=== PATIENT | male | born 1970 | race Caucasian/White ===

== ENCOUNTER 2024-11-18 20:56 | Emergency (ER) | payer OTHER, SELFPAY ==
--- OUTSIDE RECORDS SUMMARY | 2024-11-18 20:57 | XMS_ITS | Clinical Summary ---
Author Organization [facility] Address [address] [place] [id number] Care Team Providers Care Press Brake Operator Name Role Phone Bryn Galloway MD Primary Care Provider Allergies Active Allergy Reactions Criticality Noted Date Comments Grass Pollen Itching,Runny Nose 09/25/2018 Budesonide-Formoterol Cough 09/25/2018 Medications fluticasone, 50 mcg per actuation, nasal (FLONASE) 50 mcg/actuation nasal spray Inhale 1 Nicholls into both nostrils once daily. 1 Bottle 0 2 Active cetirizine (ZYRTEC) 10 mg tablet Take 1 tablet by mouth once daily. 0 6 Active melatonin 5 mg capsule Take 1 capsule by mouth at bedtime. 0 9 Active sucralfate (CARAFATE) 1 gram tabletIndications :Chronic GERD Take 1 Tablet (1 g) by mouth three times daily before meals. Use as needed before times you generally have worsened reflux 30 Tablet 3 2 Active albuterol HFA (PRO-AIR; VENTOLIN; PROVENTIL) 90 mcg/actuation inhalerIndication s:Moderate persistent asthma without complication (HC) Inhale 1 Puff by mouth every 4 hours while awake. 8.5 g 1 4 Active omeprazole (PRILOSEC) 40 mg Delayed-Release capsuleIndication s:Gastroesophagea l reflux disease, unspecified whether esophagitis present Take 1 Capsule (40 mg) by mouth once daily before a meal. 90 Capsule 3 4 Active SUMAtriptan (IMITREX) 100 mg tabletIndications :Migraine syndrome Take 1 Tablet (100 mg) by mouth every 2 hours if needed for Migraine. Max dose: 200mg per 24 hrs. 9 Tablet 11 4 Active DULoxetine (CYMBALTA) 20 mg Delayed-release capsuleIndication s:KIMBERLY (generalized anxiety disorder),Depress ion, major, in remission Take 1 Capsule (20 mg) by mouth once daily. Stop escitalopram. 90 Capsule 3 4 Active mirtazapine (REMERON) 7.5 mg tabletIndications :Sleep disturbance Take 1 Tablet (7.5 mg) by mouth at bedtime. As needed for sleep. 90 Tablet 3 4 Active Advair HFA 115-21 mcg/actuation inhalerIndication s:Moderate persistent asthma, unspecified whether complicated (HC) INHALE 2 PUFFS BY MOUTH EVERY 12 HOURS 12 g 3 4 Active sildenafil citrate 100 mg tabletIndications :Erectile dysfunction of organic origin TAKE ONE-HALF TO ONE TABLET BY MOUTH ONCE DAILY IF NEEDED FOR ED. TAKE 30 MINUTES TO 4 HOURS BEFORE SEXUAL ACTIVITY. 30 Tablet 2 5 Active Active Problems Problem Noted Date Diagnosed Date Depression, major, in remission 02/27/2024 KIMBERLY (generalized anxiety disorder) 02/27/2024 IFG (impaired fasting glucose) 04/14/2022 Overview (04/14/2022): A1c 5.9% (03/2022) Family history of heart disease - Father CABG ag e 60 10/03/2018 Inguinal hernia, left 10/03/2018 Overview (04/11/2022): 2018 CT without hernia 2021 - mild left inguinal hernia on exam, non-tender. Monitor. Allergic rhinitis due to pollen 09/25/2018 Mild intermittent asthma without complication Overview (11/13/2018): URI Triggers and Pollen triggers. Tried Symbicort, but caused coughing 11/2018 -PFTs with normal exhaled nitric oxide, normal DLCO and normal capacity. Migraine variant 02/02/2005 Overview (09/25/2018): Cluster Headaches. Uses imitrex with good effect (about once per year) Resolved Problems Problem Noted Date Diagnosed Date Resolved Date Healthcare maintenance 08/14/202102/26 Overview (08/14/2021): Colonoscopy normal 06/2021 - follow up 10 years Moderate persistent asthma w ithout complication 10/03/2018 04/11/2022 Migraine syndrome 09/25/2018 09/25/2018 Encounters Date Type Department Care Team Description 10/05/2024 Refill [facility] [place] [address] [place] [address] Bryn Galloway MD Refill Request (Sildenafil Citrate) from Last 3 Months Immunizations Immunization Administration Dates Next Due COVID-19 vaccine (Moderna 100mcg/0.5mL) AGAPITO WESTON 07/28/2021 DT (Age < 7 years) 07/09/1990 Influenza A (H1N1), Inactivated 07/10/2009 Td (Age >=7 Years) 02/08/2005 Tdap 01/13/2015 Zoster (Shingrix-RZV, recombinant) 06/01/2023,03/22/2021 Family History Medical History Relation Name Comments Good Health Brother 1 Hyperlipidemia Brother 2 Hyperlipidemia Brother 3 Heart Disease Father CABG Other Maternal Aunt crohns Other Maternal Grandfather hemochr omatosis Good Health Mother Heart issues Depression Paternal Grandmother Severe Depression Good Health Sister Allergic rhinitis Son 2 Relation Name Status Comments Brother 1 Alive Brother 2 Alive Brother 3 Alive Father Alive Maternal Aunt Maternal Grandfather Mother Alive Paternal Grandmother Sister Alive Son 1 Alive Son 2 Alive Son 3 Alive Social History Tobacco Use Types Packs/Day Years Used Date Smoking Tobacco: Former Cigarettes Q uit: 05/23/1997 Passive Smoke Exposure: Past Smokeless Tobacco: Never Tobacco Cessation:Counseling Given: Not Answered Alcohol Use Standard Drinks/Week Comments Not Currently 4 (1 standard drink = 0.6 oz pur e alcohol) occ PHQ-2 Answer Date Recorded PHQ-2 TOTAL SCORE 2 03/28/2024 Social Connections Answer Date Recorded Do you often feel lonely or isolated from those around you? 0 02/27/2024 Financial Resource Strain Answer Date R ecorded Difficulty of Paying Living Expenses 3 02/27/2024 Difficulty of Paying Living Expenses Not on file 02/27/2024 Food Insecurity Answer Date Recorded Do you worry your food will run out before you are able to buy more? 1 02/27/2024 Transportation Needs Answer Date Record ed Does lack of transportation keep you from medica l appointments? 1 02/27/2024 Does lack of transportation keep you from work, meetings or getting things that you need? 1 02/27/2024 Housing Stability Answer Date Recorded What is your housing situation today? 1 02/27/2024 Utilities Answer Date Recorded Do you have trouble paying f or utilities (for example, heat, electricity, water, phone)? 1 02/27/2024 Sex and Gender Information Value Date Recorded Sex Assigned at Not on file Legal Sex Male 8:40 AM WEB OPERATIONS SPECIALIST Gender Identity Not on file Sexual Orientation Not on file Obstetrics History Last Filed Vital Signs Vital Sign Reading Time Taken Comments Blood Pressure 116/67 05/28/2024 2:41 PM WEB OPERATIONS SPECIALIST Pulse 77 05/28/2024 2:41 PM WEB OPERATIONS SPECIALIST Temperature 36.6 C (97.9 F) 05/17/2022 9:35 AM WEB OPERATIONS SPECIALIST Respiratory Rate 16 02/27/2024 11:2 6 AM CDT Oxygen Saturation 96% 05/28/2024 2:41 PM WEB OPERATIONS SPECIALIST Inhaled Oxygen Concentration - - Weight 77.9 kg (171 lb 12.8 oz) 05/28/2024 2:41 PM WEB OPERATIONS SPECIALIST Height 174.5 cm (5' 8.7) 05/28/2024 2:41 PM WEB OPERATIONS SPECIALIST Body Mass Index 25.59 05/28/2024 2:41 PM WEB OPERATIONS SPECIALIST Plan of Treatment Health Maintenance Due Date Last Done Comments Pneumococcal series for age 50+ (1 of 2 - PCV) 1988 COVID-19 vaccine series ( season) 2024 07/28/2021, 11/25/2020, 10/28/2020 Tetanus booster 01/13/2025 01/13/2015, 02/08/2005 Influenza Vaccine (Season Ended) 2025 Depression screening for age 12+ 03/28/2025 03/28/2024, 03/06/2024, 02/27/2024, Additional history exists BMI (ht and wt on same day) for age 18+ 05/28/2025 05/28/2024, 03/28/2024, 02/27/2024, Additional history exists HIV for age 15-65 03/04/2029 Postponed from 1984 (Patient discretion) Lipids for age 45-75 03/28/2029 03/28/2024, 04/11/2022, 01/26/2021, Additional history exists Colonoscopy through age 75 07/06/2031 07/06/2021 Tdap Completed 01/13/2015 Hepatitis C screening for age 18-79 Completed 04/11/2022 Zoster (shingles) series for age 50+ Completed 06/01/2023, 01/19/2021 Procedures Procedure Name Priority Date/Time Associated Diagnosis Comments LIPID PANEL Routine 03/28/2024 9:05 AM CDT Screening, lipid ANTI HCV Routine 04/11/2022 10:35 AM CDT Need for hepatitis C screening test SCAN-COLONOSCOPY 07/06/2021 11:3 0 AM WEB OPERATIONS SPECIALIST from Last 3 Months or Most Recently Relevant to Health Maintenance Results * Lipid panel, fasting (03/28/2024 9:05 AM CDT) CHOLESTEROL,TOTAL 190 100 - 199 mg/dL 03/28/2024 12:15 PM CDT [facility] Comment: Cholesterol, Total Reference Ranges Desirable <200 mg/dL Borderline 200-239 mg/dL High >=240 mg/dL TRIGLYCERIDES 43 <150 mg/dL 03/28/2024 12:15 PM CDT [facility] HDL CHOLESTEROL 87 >40 mg/dL 12:15 PM CDT [facility] [employer]-[facility] NON-HDL CHOLESTEROL 103 <145 mg/dl 03/28/2024 12:15 PM CDT [facility] CHOL/HDL RATIO 2.18 <4.50 03/28/2024 12:15 PM CDT [facility] LDL CHOLESTEROL 94 <=130 mg/dL 03/28/2024 12:15 PM CDT [facility] VLDL CHOLESTEROL 9 <=30 mg/dL 03/28/2024 12:15 PM CDT [facility] PROVIDER ORDERED STATUS FASTING 03/28/2024 12:15 PM CDT [facility] Blood BLOOD SPECIMEN / Unknown Venipuncture / Unknown 03/28/2024 9:05 AM CDT 03/28/2024 9:05 AM CDT us Bryn Galloway MD CHEMISTRY Final Resul t [facility] [address] [place] [address], * ANTI HCV (04/11/2022 10:35 AM CDT) HEPATITIS C ANTIBODY Non-React leon Non-React leon 04/12/2022 4:22 PM CDT [facility] Comment:Antibodies to HCV no t detected; does not exclude the possibility of exposure to HCV. Blood BLOOD SPECIMEN / Unknown Venipuncture / Unknown 04/11/2022 10:35 AM CDT 04/11/2022 10:36 AM CDT Bryn Galloway MD SEND OUTS Final Resul t [facility] [address] [place] [address], [place] * SCAN-COLONOSCOPY (07/06/2021 11:30 AM WEB OPERATIONS SPECIALIST) Narrative Procedure Note Angus Boone DO - 07/06/2021 10:46 AM CST [facility] [address], [address], [place] [address] Patient Name: Salomón Winston Gender: Male Exam Date: 07/06/2021 Visit Number: [id number] Age: 50 Years 11 Months Date of : 1970 Attending MD: Angus Boone DO Medical Record#: [id number] ----- Procedure: Colonoscopy Indications: Colorectal cancer screening Referring MD: Bryn Galloway MD Primary MD: Bryn Galloway MD Medications: Admitting Medications: 0.9% Normal Saline at [facility] Intra Procedure Medications: Patient received monitored anesthesia care. Complications: No immediate complications Procedure: An examination of the heart and lungs was performed and found to be withinacceptable limits. The patient was therefore deemed a reasonablecandidate for endoscopy and monitored anesthesia care. The risks and benefits of the procedure were explained to the patient.After obtaining informed consent, the patient received monitoredanesthesia care and I passed the scope without difficulty via the rectum to the cecum. The appendiceal orificeand ic valve were identified. The quality of the prep was good(Miralax/Gatorade/2 tablets Bisacodyl/Magnesium Citrate). This was a complete examination throughout the entire colon. Findings: Small internal hemorrhoids without bleeding. Numerous visible lymphoid aggregates throughout the entire but wasotherwise normal. Impression: Screening Colonoscopy Hemorrhoids, internal Plan Repeat colonoscopy in 10 years for colon cancer screening. If you have signs or symptoms of lower GI illness or a new diagnosis ofcolon cancer in an immediate family member, you should contact your GIprovider or your primary provider to discuss whether your next examshould be repeated sooner. We will attempt to contact you at appropriate intervals via U.S. mail. Wemay not be able to find you or contact you at that time, therefore youshould know that the responsibility for following our recommendation restswith you. If you don't hear from us at the time your procedure is due,please contact our office to schedule an appointment. If your contactinformation should change, please contact our office so that we can updateyour records. Electronically signed by: Angus Boone DO 07/06/2021 Medications: Medication Dose Sig Description PRN Status PRN Reason Comments melatonin 10 mg capsule 10 mg take 1 tablet by oral route every day N omeprazole 40 mg capsule,delayed release 40 mg take 1 capsule by oralroute every day N Zyrtec 10 mg tablet 10 mg take 1 tablet by oral route every day N Allergies: Medication Name Ingredient Reaction Comment NO KNOWN ALLERGIES Vital Signs: Date Time Systolic Diastolic Height Weight BMI 07/06/2021 1059 AM 122 84 69 in 175.21 25.90 Race: Declined to specify Preferred Language: Citizen [place] cc: Bryn Galloway MD cc: Bryn Galloway MD [facility] [phone] Angus Boone DO OTHER Final Result from Last 3 Months or Most Recently Relevant to Health Maintenance Insurance [facility] Care Teams Press Brake Operator Relationship Specialty Start Date End Date Bryn Galloway MD [address] [place] [address] PCP - General Internal Medicine 09/25/18
[2024-11-18 21:10] VITALS: BP 121/81; PULSE 98; RESP 18; TEMP 36.4; O2SAT 95; BMI 25.1
--- NOTE | 2024-11-18 22:16 | ED_ITS ---
HPI - General Adult General Chief complaint: Extremity Pain/Injury, Lower Stated complaint: L leg pain Time Seen by Provider: 11/18/24 22:15 History of Present Illness HPI narrative: 54-year-old male with a past medical history of asthma presenting to the ER today with left calf pain. He is generally healthy. He works as a contractor. He was helping his son in a softball game this evening because his son needed to sepsis to player in order to meet the number players for them to feel a team. He was up to bat and hit a ball and was running toward [facility] base when he felt an abrupt pop in his left calf. Since then he has been having pain in his been having trouble walking on the left leg. He feels the pain in the distal and the gastrocnemius muscle but not down into the Achilles tendon. No pain in his knee. No pain in his heel or calcaneus. No other injury. Related Data Home Medications ?Medication ?Instructions ?Recorded ?Confirmed albuterol sulfate 90 mcg/actuation 2 puff inhalation Q8H 06/13/22 11/18/24 aerosol inhaler cetirizine 10 mg tablet (Zyrtec) 10 mg PO QDAY PRN 06/13/22 11/18/24 omeprazole 40 mg capsule,delayed 40 mg PO 06/13/22 06/13/22 release sildenafil 100 mg tablet 100 mg PO Q24H 06/13/22 11/18/24 sumatriptan succinate 100 mg tablet ea PO 06/13/22 06/13/22 Previous Rx's ?Medication ?Instructions ?Recorded amoxicillin 875 mg-potassium 1 tab PO BID #20 tabs 06/13/22 clavulanate 125 mg tablet prednisone 20 mg tablet 20 mg PO BID #10 tabs 06/13/22 Allergies Allergy/AdvReac Type Severity Reaction Status Date / Time No Known Drug Allergies Allergy Verified 11/18/24 21:16 PFSH PFSH Social History Smoking Status: Never smoker How often do you have a drink containing alcohol: never AUDIT-C Alcohol total score: 0 Non-prescribed substance use: denies use service: No Exam Narrative: Exam Narrative: Constitutional: Appears well-developed and well-nourished. Robust appearing.. Non-toxic appearing. Very polite. HENT: Head: Atraumatic. No signs of injury. Nose: No nasal discharge. Mouth/Throat: Mucous membranes are moist. Eyes: Conjunctivae normal and EOM are normal. Pupils are equal, round, and reactive to light. Right eye exhibits no discharge. Left eye exhibits no discharge. No icterus. Neck: Normal range of motion. Neck supple. No adenopathy. No stridor. Cardiovascular: Normal rate and regular rhythm. No murmur heard. No murmurs, rubs, or gallops. Brisk capillary refill Pulmonary/Chest: Effort normal. No stridor. No respiratory distress. No wheezes.No rhonchi. No rales. No retractions. Musculoskeletal: Normal except for his left calf. Right lower extremity-normal range of motion. No edema. No tenderness. No deformity. Left lower extremity: Hip, femur, quad, hamstring are normal. Knee normal inspection and no tenderness over the patella, proximal tibia, proximal fibula. Normal range of motion in the knee. Calf is tender over the distal 1/3 of the gastrocnemius muscle belly. No definite palpable defect in the muscle and no swelling fluctuance to suggest hematoma. Mild tenderness over the Achilles but no palpable tendon defect. He does have an intact Artis test with plantar flexion of the foot when I compress is gastroc muscle belly. Distally the Achilles tendon is nontender. The calcaneus and heel and foot are nontender. Medial and lateral malleoli of the ankle are nontender. Strong DP and PT pulse. Normal distal cap refill. Intact distal sensory function to light touch in the foot. Neurological: Alert. Normal strength. No cranial nerve deficit or sensory de ficit. Coordination normal. GCS eye subscore is 4. GCS verbal subscore is 5. GCS motor subscore is 6. Skin: Skin is warm. No rash noted. Const: Vital Signs, click to edit/add: Vital Signs - 24 hr 11/18/24 21:10 Temperature 97.5 F L Pulse Rate [Left P ulse Oximeter] 98 Respiratory Rate 18 Blood Pressure [Ri ght Upper Arm] 121/81 Pulse Oximetry 95 Oxygen Delivery Me thod Room Air Course Course ED Course: Procedure: Left-side short-leg posterior splint placement Indication: Calf strain, possible partial gastrocnemius muscle tear Patient was turned in the prone position. After placing cotton padding with wrap from distal to proximal we placed a 4 in fiberglass splint. Careful attention was paid to the ends of the splint to avoid any scratching or rubbing on the skin. Splint was formed and position. Patient was more comfortable with the splint in place. We did place a splint with the ankle slightly plantar flex in equinus, in his position of comfort, creating roughly a 120 degree angle. Vital Signs Vital signs: Initial Vital Signs Temperature 97.5 F L 11/18/24 21:10 Temperature Source Temporal Artery Scan 11/18/24 21:10 Pulse Rate 98 11/18/24 21:10 Respiratory Rate 18 11/18/24 21:10 Blood Pressure 121/81 11/18/24 21:10 Blood Pressure Mean 94 11/18/24 21:10 Blood Pressure Position Sitting 11/18/24 21:10 Pulse Oximetry 95 11/18/24 21:10 Oxygen Delivery Method Room Air 11/18/24 21:10 Vital Signs Temperature 97.5 F L 11/18/24 21:10 Pulse Rate 98 11/18/24 21:10 Respiratory Rate 18 11/18/24 21:10 Blood Pressure 121/81 11/18/24 21:10 Pulse Oximetry 95 11/18/24 21:10 Oxygen Delivery Method Room Air 11/18/24 21:10 Temperature 97.5 F L 11/18/24 21:10 Pulse Rate 98 11/18/24 21:10 Respiratory Rate 18 11/18/24 21:10 Blood Pressure 121/81 11/18/24 21:10 Pulse Oximetry 95 11/18/24 21:10 Oxygen Delivery Method Room Air 11/18/24 21:10 Medical Decision Making MDM Narrative Medical decision making narrative: Very pleasant 54-year-old male presenting to the ER today with an acute injury to his left calf. He injured at night wall sprinting hard during a softball game. He did not injure his knee or ankle. He had no fall. At this point the patient and agree that this does not likely represent an acute fracture of his lower extremity. Clinical presentation concerning for either injury to the gastrocs knee medius muscle belly, soleus muscle, or Achilles tendon rupture. Based on location of tenderness I would favor probably injury to the muscle belly. Fortunately he does have some plantar flexion which would argue against a complete destruction of the gastrocs/Achilles. Patient is placed into a splint for comfort. He already has crutches at home to limit weight-bearing. He will use Tylenol and ibuprofen if needed for pain. He declines prescription pain meds. He will need close outpatient follow-up with Orthopedics repeat evaluation in 2-3 days. If persistent pain or limited range of motion may need MRI to assess the extent of his injury. He expresses his preference most likely to see [facility] in [place], where he lives. Discharge Plan Discharge Clinical Impression: Strain of left calf muscle Patient Disposition: Home, Self-Care Condition: Stable Instructions: Splint Care (ED) Additional Instructions: As we discussed, please keep your lower leg in the splint to immobilize your calf and Achilles tendon. We suspect you probably tore the muscle fibers of your gastrocnemius muscle but does not seem that you ruptured your Achilles. To treat pain over the next couple of days you can use Tylenol or ibuprofen if needed. Use ice for 20 minutes every 3-4 hours. Use crutches to keep weight off her left leg. Please follow-up with orthopedics within the next 2-3 days for a recheck. You can follow-up with orthopedic doctors at [facility] in [place] or if you would like you can call the [facility] at [phone] to make an ER follow-up appointment. Prescriptions: No Action sildenafil 100 mg tablet 100 mg PO Q24H Patient Comments: TAKE 1/2 TO 1 TABLET BY MOUTH ONCE DAILY IF NEEDED FOR ERECTILE DYSFUNCTION. 30 MINUTES TO 4 HOURS BEFORE SEXUAL ACTIVITY. MAX 1 TABLET PER albuterol sulfate 90 mcg/actuation HFA aerosol inhaler 2 puff inhalation Q8H Patient Comments: INHALE 2 PUFFS BY MOUTH FOUR TIMES DAILY NEEDED FOR SHORTNESS OF BREATH omeprazole 40 mg capsule,delayed release(DR/EC) 40 mg PO sumatriptan succinate 100 mg tablet PO Patient Comments: TAKE 1 TABLET BY MOUTH EVERY 2 HOURS NEEDED FOR MIGRAINE. MAX OF 2 TABLETS PER 24 HOURS cetirizine [Zyrtec] 10 mg tablet 10 mg PO QDAY PRN prednisone 20 mg tablet 20 mg PO BID Qty: 10 0RF amoxicillin-pot clavulanate 875-125 mg tablet 1 tab PO BID Qty: 20 0RF Follow Up/Referrals: Provider,Not a Local [Non-Staff] - Stand Alone Forms: [employer] Info Instructions
--- OUTSIDE RECORDS SUMMARY | 2024-11-18 22:52 | XMS_ITS | Clinical Summary ---
Author Organization [facility] Address [address] [place] [id number] Care Team Providers Care Transformer Stock Clerk Name Role Phone Bryn Galloway MD Primary Care Provider Allergies Active Allergy Reactions Criticality Noted Date Comments Grass Pollen Itching,Runny Nose 09/25/2018 Budesonide-Formoterol Cough 09/25/2018 Medications fluticasone, 50 mcg per actuation, nasal (FLONASE) 50 mcg/actuation nasal spray Inhale 1 Granite into both nostrils once daily. 1 Bottle [...] Department Care Team Description 10/05/2024 Refill [facility] [address] [place] [address] Bryn Galloway MD Refill Request (Sildenafil Citrate) [...] on file Legal Sex Male 8:40 AM BOX ANNEALER Gender Identity Not on file Sexual Orientation Not on file Obstetrics History Last Filed Vital Signs Vital Sign Reading Time Taken Comments Blood Pressure 116/67 05/28/2024 2:41 PM BOX ANNEALER Pulse 77 05/28/2024 2:41 PM BOX ANNEALER Temperature 36.6 C (97.9 F) 05/17/2022 9:35 AM BOX ANNEALER Respiratory Rate 16 02/27/2024 11:2 6 AM CDT Oxygen Saturation 96% 05/28/2024 2:41 PM BOX ANNEALER Inhaled Oxygen Concentration - - Weight 77.9 kg (171 lb 12.8 oz) 05/28/2024 2:41 PM BOX ANNEALER Height 174.5 cm (5' 8.7) 05/28/2024 2:41 PM BOX ANNEALER Body Mass Index 25.59 05/28/2024 2:41 PM BOX ANNEALER Plan of Treatment Health Maintenance Due Date [...] screening test SCAN-COLONOSCOPY 07/06/2021 11:3 0 AM BOX ANNEALER from Last 3 Months or Most Recently Relevant to Health Maintenance Results * Lipid panel, fasting (03/28/2024 9:05 AM CDT) CHOLESTEROL,TOTAL 190 100 - 199 mg/dL 03/28/2024 12:15 PM CDT [facility] Comment: Cholesterol, Total Reference Ranges Desirable <200 mg/dL Borderline 200-239 mg/dL High >=240 mg/dL TRIGLYCERIDES 43 <150 mg/dL 03/28/2024 12:15 PM CDT [facility] HDL CHOLESTEROL 87 >40 mg/dL 12:15 PM CDT [facility] [employer] NON-HDL CHOLESTEROL 103 <145 mg/dl 03/28/2024 12:15 PM CDT [facility] CHOL/HDL RATIO 2.18 <4.50 03/28/2024 12:15 PM CDT [facility] LDL CHOLESTEROL 94 <=130 mg/dL 03/28/2024 12:15 PM CDT [facility] VLDL CHOLESTEROL 9 <=30 mg/dL 03/28/2024 12:15 PM CDT [facility] PROVIDER ORDERED STATUS FASTING 03/28/2024 12:15 PM CDT [facility] Blood BLOOD SPECIMEN / Unknown Venipuncture / Unknown 03/28/2024 9:05 AM CDT 03/28/2024 9:05 AM CDT us Bryn Galloway MD CHEMISTRY Final Resul t [facility] [address] [place] [address], * ANTI HCV (04/11/2022 10:35 AM CDT) HEPATITIS C ANTIBODY Non-React leon Non-React leon 04/12/2022 4:22 PM CDT [facility] Comment:Antibodies to HCV no t detected; does not exclude the possibility of exposure to HCV. Blood BLOOD SPECIMEN / Unknown Venipuncture / Unknown 04/11/2022 10:35 AM CDT 04/11/2022 10:36 AM CDT Bryn Galloway MD SEND OUTS Final Resul t [facility] [address] [place] [address], [place] * SCAN-COLONOSCOPY (07/06/2021 11:30 AM BOX ANNEALER) Narrative Procedure Note Angus Boone DO - 07/06/2021 10:46 AM CST [facility] [address], [address], [place] [address] Patient Name: Salomón Winston Gender: Male Exam Date: 07/06/2021 Visit Number: [id number] Age: 50 Years 11 Months Date of : 1970 Attending MD: Angus Boone DO Medical Record#: [id number] ----- Procedure: Colonoscopy Indications: Colorectal cancer screening Referring MD: Bryn Galloway MD Primary MD: Bryn Galloway MD Medications: Admitting Medications: 0.9% Normal Saline at [facility] Intra Procedure Medications: Patient received monitored anesthesia [...] 25.90 Race: Declined to specify Preferred Language: [place]er cc: Bryn Galloway MD cc: Bryn Galloway MD [facility] [phone] Angus Boone DO OTHER Final Result from Last 3 Months or Most Recently Relevant to Health Maintenance Insurance [facility] Care Teams Transformer Stock Clerk Relationship Specialty Start Date End Date Bryn Galloway MD [address] [place] [address] PCP - General Internal Medicine 09/25/18
== END 2024-11-18 23:04 | disposition home or self-care (01) ==
LOC: ED 22:51
PROVIDERS: Emergency Provider Emergency Medicine; PCP Physician Assistant
DX: S86.812A Strain of other muscle(s) and tendon(s) at lower leg level, left leg, initial encounter (principal); X50.1XXA Overexertion from prolonged static or awkward postures, initial encounter
CPT/HCPCS: 29515; 99282; 99283